=== PATIENT | male | born 1995 | race Two or more races ===

== ENCOUNTER 2020-01-25 16:17 | Emergency (ER) | payer OTHER ==
[~2020-01-25] VITALS: Ht 162.6 cm; Wt 59.1 kg
[2020-01-25 17:36] VITALS: BP 111/61
== END 2020-01-25 17:40 | disposition home or self-care (01) ==
LOC: MERGE 16:18 → ER 16:18
DX: R07.89 Other chest pain (principal); R20.2 Paresthesia of skin
CPT/HCPCS: 71045; 93005; 99283